=== PATIENT | male | born 1995 | race Caucasian/White ===

== ENCOUNTER 2019-06-21 18:30 | Emergency (ER) | payer OTHER, MEDICAID ==
--- NOTE | 2019-06-21 18:42 | ED Physician Documentation ---
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 No other injuries.) Review of Systems Constitutional: reports: Reviewed and negative Cardiac: reports: Reviewed and negative Respiratory: reports: Reviewed and negative PD PAST MEDICAL HISTORY - Past Surgical History Past Surgical History: No - Present Medications Home Medications: Ambulatory Orders Medication Instructions Recorded Confirmed Azithromycin 250 mg PO DAILY #4 tablet 03/23/14 05/03/14 Neomycin Fregoso/Colist/Hc/Thonzon 10 ml OT Q6H PRN #1 bottle 03/23/14 05/03/14 [Cortisporin-Tc Ear Susp] Cephalexin [Keflex] 500 mg PO Q6H #28 capsule 06/21/19 - Allergies Allergies/Adverse Reactions: Allergies Allergy/AdvReac Type Severity Reaction Status Date / Time amoxicillin [Amoxicillin] AdvReac Intermediate fatigue Verified 06/21/19 18:37 - Social History Does the pt smoke?: No Smoking Status: Never smoker Does the pt drink ETOH?: No Does the pt have substance abuse?: No - Immunizations Immunizations are current?: Yes - POLST Patient has POLST: No PD ED PE NORMAL - Vitals Vital signs reviewed: Yes - General General: Alert and oriented X 3, No acute distress - Extremities Extremities: Other (He has a 1.5 cm laceration on the dorsum of the left middle finger at the level of the DIP, radial side without distal neurovascular compromise, normal extensor tendon function.) - Neuro Neuro: Alert and oriented X 3, Normal speech Results - Vitals Vitals: Vital Signs - 24 hr 06/21/19 18:35 Temperature 36.2 C L Heart Rate 68 Respiratory 16 Rate Blood Pressure 157/82 H O2 Saturation 97 Oxygen O2 Source Room air Procedures - Laceration (location) L 3rd finger Length in cm: 1.5 Wound type: Curved Neurovascular status: Sensory intact, Motor intact, Vascular intact Tendon involvement: Other (Though there was no tendon injury based on function, on exploration he had almost a 50% extensor tendon injury at the level of the DIP.) Anesthesia: Lidocaine 1%, With bicarb Wound Preparation: Irrigated copiously NS Skin layer closure: Nylon, Interrupted, Size #-0 - enter number (5-0), Sutures - enter # (6) Other: Tetanus UTD Complexity: Simple - Splint (location) L 3rd finger Splint applied by: Tech Type of splint: Metal foam finger splint PD MEDICAL DECISION MAKING - ED course ED course: 24-year-old gentleman with finger injury, nondominant left middle finger with a partial extensor tendon laceration at the level of the DIP. It was irrigated and closed and he was placed on Keflex and splinted. Case discussed by phone with Dr. Ryder who will see him in the clinic in follow-up. Departure - Departure Disposition: 01 Home, Self Care Clinical Impression: Laceration of left middle finger Qualifiers: Encounter type: initial encounter Damage to nail status: without damage Foreign body presence: without foreign body Qualified Code(s): S61.213A - Laceration without foreign body of left middle finger without damage to nail, initial encounter Extensor tendon laceration of finger with open wound Qualifiers: Encounter type: initial encounter Qualified Code(s): S56.429A - Laceration of extensor muscle, fascia and tendon of unspecified finger at forearm level, initial encounter; S61.209A - Unspecified open wound of unspecified finger without damage to nail, initial encounter Condition: Good Record reviewed to determine appropriate education?: Yes Instructions: ED Laceration Hand Follow-Up: Alon Ryder MD [Provider Admit Priv/Credential] - (Call Monday for appt next week) Prescriptions: Cephalexin [Keflex] 500 mg PO Q6H #28 capsule Comments: Keep the splint on and dry at all time with the finger in extension. Return for new or worsening symptoms. Follow-up with your orthopedic surgeon next week, call on Monday for an appointment.
[2019-06-21] MEDS ORDERED: BUFFERED LIDOCAINE 10 ML SYRINGE ONE (18:53)
[2019-06-21] MEDS ORDERED: cephALEXin 250 MG CAPSULE PO STA (19:07)
[2019-06-21 19:27] VITALS: BP 147/85
== END 2019-06-21 19:23 | disposition home or self-care (01) ==
LOC: ED 18:30
DX: S61.213A Laceration without foreign body of left middle finger without damage to nail, initial encounter (principal); S66.323A Laceration of extensor muscle, fascia and tendon of left middle finger at wrist and hand level, initial encounter; W26.0XXA Contact with knife, initial encounter; Y93.G1 Activity, food preparation and clean up; Y99.0 Civilian activity done for income or pay
CPT/HCPCS: 1040M; 12001; 99282; 99283; A9270

== ENCOUNTER 2021-04-12 22:16 | Emergency (ER) | payer MEDICAID, OTHER ==
[2021-04-12 22:23] VITALS: BP 158/75
[2021-04-12] MEDS ORDERED: DEXAMETHASONE 10 MG/ML VIAL PO STA (22:34)
[2021-04-12] MEDS ORDERED: CHERRY SYRUP 10 ML UDC PO ONE (22:34)
--- NOTE | 2021-04-12 22:38 | ED Physician Documentation ---
History of Present Illness - Stated complaint Stated Complaint: CHEMICAL MAHAJAN - Chief complaint Chief Complaint: Burn - History obtained from History obtained from: Patient - History of Present Illness Timing: Today - Additonal information Additional information: 25-year-old male who works with a [employer] reports that he forgot his work gloves today and he was out pulling some of the big weeds after that been sprayed. He reports that when he got home he noted that he had some swelling to his face and some itching to his hands and up his forearms he thought that he had washed his hands adequately but he has a blister to his right eyebrow as well as erythema and swelling. He is taken a 35-minute shower prior to coming to the emergency department.He feels certain that he has not encountered poison jacky or poison sumac. Review of Systems Constitutional: denies: Fever Eyes: denies: Decreased vision Ears: denies: Ear pain Nose: denies: Congestion Throat: denies: Sore throat Cardiac: denies: Chest pain / pressure Respiratory: denies: Dyspnea, Cough : denies: Dysuria, Frequency Skin: reports: Rash Musculoskeletal: denies: Neck pain, Back pain, Extremity pain Neurologic: denies: Generalized weakness, Focal weakness, Numbness PD PAST MEDICAL HISTORY - Past Surgical History Past Surgical History: No - Present Medications Home Medications: Ambulatory Orders Medication Instructions Recorded Confirmed Azithromycin 250 mg PO DAILY #4 tablet 03/23/14 05/03/14 Neomycin Fregoso/Colist/Hc/Thonzon 10 ml OT Q6H PRN #1 bottle 03/23/14 05/03/14 [Cortisporin-Tc Ear Susp] cephALEXin [Keflex] 500 mg PO Q6H #28 capsule 06/21/19 predniSONE [Deltasone] 40 mg PO DAILY 5 Days #10 tablet 04/12/21 - Allergies Allergies/Adverse Reactions: Allergies Allergy/AdvReac Type Severity Reaction Status Date / Time amoxicillin [Amoxicillin] AdvReac Intermediate fatigue Verified 04/12/21 22:19 - Social History Does the pt smoke?: No Smoking Status: Never smoker Does the pt drink ETOH?: No Does the pt have substance abuse?: No - Immunizations Immunizations are current?: Yes Immunizations: TDAP current <10years - POLST Patient has POLST: No PD ED PE NORMAL - Vitals Vital signs reviewed: Yes (Hypertensive) - General General: Alert and oriented X 3, No acute distress, Well developed/nourished - HEENT HEENT: Atraumatic, PERRL, EOMI, Other (There is erythema and swelling of the skin to both periorbital areas just above the eyebrows and to the cheeks. This is worse on the right than the left and there is a blister that has popped under the right eyebrow. Appearance is consistent with poison jacky or poison sumac or a bad contact dermati) - Neck Neck: Supple, no meningeal sign, No bony TTP - Cardiac Cardiac: RRR, No murmur - Respiratory Respiratory: No respiratory distress, Clear bilaterally - Abdomen Abdomen: Soft, Non tender - Back Back: No CVA TTP, No spinal TTP - Derm Derm: Normal color, Warm and dry, Other (There is a fine red rash to the hands dorsally that extends up the forearm. Bilateral ) - Neuro Neuro: Alert and oriented X 3, seconds inspector 2-12 intact, No motor deficit, No sensory deficit, Normal speech Eye Opening: Spontaneous Motor: Obeys Commands Verbal: Oriented GCS Score: 15 - Psych Psych: Normal mood, Normal affect Results - Vitals Vitals: Vital Signs - 24 hr 04/12/21 22:19 Temperature 36.5 C Heart Rate 78 Respiratory 16 Rate Blood Pressure 158/75 H O2 Saturation 99 Oxygen O2 Source Room air PD MEDICAL DECISION MAKING - ED course Complexity details: considered differential, d/w patient ED course: 25-year-old male with what appears to be a contact dermatitis or potentially poison jacky or poison sumac. He is treated here in the emerge department with 10 mg of dexamethasone encouraged to take Benadryl 25 mg every 6 hours for the next 2 days. We will put him on a short course of prednisone as well. Departure - Departure Disposition: 01 Home, Self Care Clinical Impression: Contact dermatitis Qualifiers: Contact dermatitis type: irritant Contact dermatitis trigger: other chemical product Qualified Code(s): L24.5 - Irritant contact dermatitis due to other chemical products Condition: Stable Instructions: ED Dermatitis Contact Follow-Up: [facility] [Provider Group] Prescriptions: predniSONE [Deltasone] 40 mg PO DAILY 5 Days #10 tablet Forms: Activity restrictions
== END 2021-04-12 23:03 | disposition home or self-care (01) ==
LOC: ED 22:16
DX: L24.5 Irritant contact dermatitis due to other chemical products (principal); Y93.H2 Activity, gardening and landscaping; Y99.0 Civilian activity done for income or pay
CPT/HCPCS: 1040M; 99282; 99284; A9270

== ENCOUNTER 2021-11-01 08:00 | Outpatient (CLI) | payer MEDICAID | END 2021-11-01 23:59 | LOC: LAB 08:00 | PROVIDERS: ATTEND Family Medicine | DX: U07.1 COVID-19 (principal) ==

== ENCOUNTER 2024-03-06 08:39 | Outpatient (CLI) | payer SELFPAY ==
[2024-03-06 12:25] LABS: BASOPHILS # (AUTO) 0.1 10^3/uL (0.0-0.1); BASOPHILS % (AUTO) 0.6 %; EOSINOPHILS # (AUTO) 0.1 10^3/uL (0.0-0.7); EOSINOPHILS % (AUTO) 0.9 %; HCT - HEMATOCRIT 48.4 % (42.0-52.0); HGB - HEMOGLOBIN 16.1 g/dL (14.0-18.0); LYMPHOCYTES # (AUTO) 1.4 10^3/uL (1.5-3.5); LYMPHOCYTES % (AUTO) 16.1 %; MEAN CORPUSCULAR HGB CONC 33.3 g/dL (32.0-36.0); MEAN CORPUSCULAR VOLUME 87.2 fL (80.0-94.0); MEAN PLATELET VOLUME 11.1 fL (7.4-11.4); MONOCYTES # (AUTO) 0.8 10^3/uL (0.0-1.0); MONOCYTES % (AUTO) 9.8 %; NEUTROPHILS # (AUTO) 6.1 10^3/uL (1.5-6.6); NEUTROPHILS % (AUTO) 72.4 %; PLT - PLATELET COUNT 251 10^3/uL (130-450); RED BLOOD COUNT 5.55 10^6/uL (4.70-6.10); RED CELL DISTRIBUTION WIDTH 13.4 % (12.0-15.0); WHITE BLOOD COUNT 8.5 x10^3/uL (4.8-10.8)
[2024-03-06 12:43] LABS: ALBUMIN 4.2 g/dL (3.2-5.5); ALBUMIN/GLOBULIN RATIO 1.4 (1.0-2.2); BILIRUBIN,TOTAL 0.7 mg/dL (0.2-1.0); CALCIUM 9.5 mg/dL (8.5-10.3); CREATININE 1.1 mg/dL (0.6-1.3); POTASSIUM 3.7 mmol/L (3.5-4.5); TOTAL PROTEIN 7.3 g/dL (6.4-8.9)
== END 2024-03-06 08:40 | disposition home or self-care (01) ==
LOC: LAB.N 08:39
PROVIDERS: ATTEND Physician Assistant Medical
DX: R10.9 Unspecified abdominal pain (principal)
CPT/HCPCS: 36415; 80053; 83690; 85025